=== PATIENT | male | born 1955 | race Caucasian/White ===

== ENCOUNTER 2019-09-07 03:27 | Emergency (ER) | payer MEDICARE, OTHER ==
[2019-09-07 03:36] VITALS: TEMP 97.7
[2019-09-07] MEDS ORDERED: LORazepam 2 MG/ML INJ IV STA (03:58)
[2019-09-07 04:12] LABS: Basophils # (A) 0.1 k/uL (0-0.2); Basophils % (A) 2 %; Eosinophils # (A) 0.4 k/uL (0-0.7); Eosinophils % (A) 6 %; HGB 13.1 gm/dL (13.0-17.5); Lymphocytes % (A) 27 %; MCH 29.8 pg (25.0-35.0); MCHC 31.9 g/dL (31.0-37.0); MCV 93.6 fL (80.0-100.0); Mean Platelet Volume 7.3; Monocytes # (A) 0.4 k/uL (0-1.0); Monocytes % (A) 5 %; Neutrophils # (A) 4.3 k/uL (1.3-7.7); Neutrophils % (A) 59 %; Platelet Count 267 k/uL (150-450); RBC 4.38 m/uL (4.30-5.90); RDW 14.3 % (11.5-15.5); WBC 7.2 k/uL (3.8-10.6)
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
--- NOTE | 2019-09-07 04:14 | XR ---
EXAMINATION TYPE: XR chest 1V portable DATE OF EXAM: 09/07/2019 COMPARISON: NONE HISTORY: Chest pain TECHNIQUE: FINDINGS: Heart and mediastinum are normal. Lungs are clear. Diaphragm is normal. There are chest alverto ds. IMPRESSION: No active cardiopulmonary disease. Normal heart.
[2019-09-07 04:23] LABS: African American GFR (CKD) >90 (>60 ml/min/1.73 sqM); Anion Gap 6 mmol/L; Blood Urea Nitrogen 13 mg/dL (9-20); Carbon Dioxide 26 mmol/L (22-30); Chloride 106 mmol/L (98-107); Glucose 103 mg/dL (74-99); Potassium 3.5 mmol/L (3.5-5.1); Sodium 138 mmol/L (137-145)
[2019-09-07 04:24] LABS: ALT 20 U/L (4-49); AST 29 U/L (17-59); Albumin 3.6 g/dL (3.5-5.0); Alkaline Phosphatase 126 U/L (38-126); Calcium 9.1 mg/dL (8.4-10.2); Magnesium 1.7 mg/dL (1.6-2.3); Non-African American GFR(CKD) 87 (>60 ml/min/1.73 sqM); Total Bilirubin 0.3 mg/dL (0.2-1.3)
[2019-09-07 04:26] LABS: INR 0.9 (<1.2); Partial Thromboplastin Time 23.5 sec (22.0-30.0); Prothrombin Time 9.7 sec (9.0-12.0)
[2019-09-07] MEDS ORDERED: METOPROLOL TARTRATE 25 MG TAB PO STA (04:51)
[2019-09-07] MEDS ORDERED: LISINOPRIL 10 MG TAB PO STA (04:51)
[2019-09-07] MEDS ORDERED: cloNIDine HCL 0.2 MG TAB PO STA (05:44)
[2019-09-07 06:59] VITALS: BP 143/107; PULSE 74; RESP 19
== END 2019-09-07 07:35 | disposition home or self-care (01) ==
LOC: EC 03:27
DX: I10 Essential (primary) hypertension (principal); R07.9 Chest pain, unspecified; R06.02 Shortness of breath; M06.9 Rheumatoid arthritis, unspecified; N40.0 Benign prostatic hyperplasia without lower urinary tract symptoms; G89.29 Other chronic pain; M54.9 Dorsalgia, unspecified; F17.200 Nicotine dependence, unspecified, uncomplicated; Z79.82 Long term (current) use of aspirin; Z79.02 Long term (current) use of antithrombotics/antiplatelets; Z79.899 Other long term (current) drug therapy; Z85.820 Personal history of malignant melanoma of skin; Z86.73 Personal history of transient ischemic attack (TIA), and cerebral infarction without residual deficits
CPT/HCPCS: 36415; 93005; 80053; 83735; 84484; 85025; 85610; 85730; 71045; 99285; 96374; J2060

== ENCOUNTER → 2021-11-04 | Outpatient (CLI) | payer MEDICARE, OTHER ==
[2021-11-04 20:53] LABS: ALT 33 U/L (10-49); AST 32 U/L (14-35); Chol/HDL Ratio 3.83 Ratio; LDL Cholesterol,Calculated 83.8 mg/dL (0.0-131.0)
== END | disposition home or self-care (01) ==
LOC: LABWHC1 12:14
PROVIDERS: ATTEND Nurse Practitioner Family
DX: E78.2 Mixed hyperlipidemia (principal)
CPT/HCPCS: 36415; 80061; 84450; 84460

== ENCOUNTER → 2022-06-05 | Outpatient (CLI) | payer MEDICARE, OTHER ==
--- NOTE | 2022-06-05 22:15 | CTL ---
EXAMINATION TYPE: CT Low Dose Lung DATE OF EXAM ORDERED: 06/05/2022 COMPARISON: None HISTORY: . Low Dose CT Lung Screening CT DLP: 99.[address] CTDI: 2.70 mGy IV CONTRAST USED: None. SCREENING VISIT: First visit COMPARISON: None. TECHNIQUE: Low dose computed tomography scan was performed through the chest at 1 millimeter thick se ctions and reconstructed images in the coronal plane at [address] DIAGNOSTIC QUALITY: Satisfactory FINDINGS: LUNG NODULES: Not presentLeft lung: no nodules identified.Right lung: no nodules identified. LUNGS: COPD: Severity: None Fibrosis: Severity:None Lymph nodes: None Other findings: None RIGHT PLEURAL SPACE: Effusion: None Calcification: None Thickening: None Pneumothorax: None LEFT PLEURAL SPACE: Effusion: None Calcification: None Thickening: None Pneumothorax: None HEART: Heart Size: Mildly enlarged Coronary calcification: Moderate Pericardial effusion: None OTHER FINDINGS: Upper abdomen: No significant abnormality Bony thorax: Degenerative changes Supraclavicular region: No significant abnormalityOther: No significant abnormalityI IMPRESSION: No pulmonary nodules seen. FOLLOW UP CT CHEST RECOMMENDATION: Follow-up screening in one year CT LUNG RAD: LUNG RAD CATEGORY 1 negative
== END | disposition home or self-care (01) ==
LOC: RADCTMAIN 18:32
PROVIDERS: ATTEND Family Medicine
DX: Z12.2 Encounter for screening for malignant neoplasm of respiratory organs (principal); Z87.891 Personal history of nicotine dependence
CPT/HCPCS: 71271

== ENCOUNTER 2022-06-25 08:53 | Day surgery (SDC) | payer MEDICARE, OTHER ==
[2022-06-23 15:57] VITALS: BMI 23.6
[~2022-06-25 08:53] MED LIST: LIDOCAINE 1% (10MG/ML) FOR IV START INTRADERMA PRN
[2022-06-25 09:23] VITALS: TEMP 96.8
[2022-06-25] MEDS: LACTATED RINGERS 1,000 ML IV SCH ×2 (09:29→09:32)
[2022-06-25] MEDS ORDERED: PROPOFOL 10 MG/ML 20 ML VIAL IV ONE (09:36)
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
--- NOTE | 2022-06-25 09:52 | P.OP ---
Date of Procedure: 06/25/22 Preoperative Diagnosis: Screen colonoscopy Postoperative Diagnosis: Sigmoid colon polyp Procedure(s) Performed: Colonoscopy Anesthesia: MAC Surgeon: Andrew Blackburn Pathology: other (Sigmoid colon polyp) Condition: stable Disposition: PACU Description of Procedure: The patient's placed on the endoscopy table in the lateral position. He received IV sedation. Digital rectal exam was performed. This revealed no ebonized. Flexible colonoscope was then placed patient anus and passed throughout. The ileocecal valve was visually is. The cecum, ascending and transverse colon appeared normal. Scope was brought back the descending colon appeared normal. In the sigmoid colon there was a peduncular polyp which was removed with the snare. Scope summer back the rectum and this appeared normal. Scope withdrawn for patient. The patient will follow-up in the office next week for evaluation of his right groin pain.
[2022-06-25 10:33] VITALS: BP 107/72; PULSE 64; RESP 14
== END 2022-06-25 10:39 | disposition home or self-care (01) ==
LOC: ORWHC2ENDO 08:53
PROVIDERS: ATTEND Surgery
DX: Z12.11 Encounter for screening for malignant neoplasm of colon (principal); K63.5 Polyp of colon; J45.909 Unspecified asthma, uncomplicated; E78.5 Hyperlipidemia, unspecified; I10 Essential (primary) hypertension; M19.90 Unspecified osteoarthritis, unspecified site; F32.A Depression, unspecified; F17.210 Nicotine dependence, cigarettes, uncomplicated; Z79.02 Long term (current) use of antithrombotics/antiplatelets; Z85.828 Personal history of other malignant neoplasm of skin; Z86.73 Personal history of transient ischemic attack (TIA), and cerebral infarction without residual deficits; Z87.442 Personal history of urinary calculi
CPT/HCPCS: 45385; J2704; 88305

== ENCOUNTER → 2022-07-07 | Outpatient (CLI) | payer MEDICARE, OTHER ==
[2022-07-07 23:29] LABS: Basophils # (A) 0.07 X 10*3/uL (0.00-0.10); Eosinophils # (A) 0.28 X 10*3/uL (0.04-0.35); Eosinophils % (A) 3.9 %; HCT 39.2 % (39.6-50.0); HGB 12.9 g/dL (13.0-17.0); Immature Grans, Automated 0.3 %; Lymphocytes # (A) 2.25 X 10*3/uL (0.90-5.00); Lymphocytes % (A) 31.6 %; MCH 31.2 pg (27.0-32.0); MCHC 32.9 g/dL (32.0-37.0); MCV 94.7 fL (80.0-97.0); Mean Platelet Volume 9.7 fL (9.5-12.2); Monocytes # (A) 0.57 X 10*3/uL (0.20-1.00); NRBC Per 100 WBC 0 /100 WBCS (0.0-0.0); Neutrophils # (A) 3.93 X 10*3/uL (1.80-7.70); Neutrophils % (A) 55.2 %; Platelet Count 294 X 10*3/uL (140-440); RBC 4.14 X 10*6/uL (4.40-5.60); RDW 14.5 % (11.5-14.5); WBC 7.12 X 10*3/uL (4.50-10.00)
== END | disposition home or self-care (01) ==
LOC: LABPAT 15:49
PROVIDERS: ATTEND Surgery
DX: Z01.812 Encounter for preprocedural laboratory examination (principal); K40.20 Bilateral inguinal hernia, without obstruction or gangrene, not specified as recurrent
CPT/HCPCS: 85025; 93005

== ENCOUNTER 2022-07-15 08:01 | Day surgery (SDC) | payer MEDICARE, OTHER ==
[~2022-07-15 08:01] MED LIST changes: +ACETAMINOPHEN TAB 500 MG TAB PO PRN; +DEXAMETHASONE SOD PHOSPHATE 4 MG/ML 1 ML VIAL IV ONE; +HEPARIN SODIUM,PORCINE/PF 5,000 UNIT/0.5 ML SYRINGE SQ PRN; +ONDANSETRON 4 MG/2 ML VIAL IVP ONE
[2022-07-15] MEDS: LACTATED RINGERS 1,000 ML IV SCH ×2 (08:35→12:17)
[2022-07-15] MEDS ORDERED: MIDAZOLAM 2 MG/2 ML VIAL IVP ONE (08:58)
--- NOTE | 2022-07-15 09:06 | P.ANPRN ---
Procedure Note - Anesthesia - Nerve Block Performed Bilateral Transversus Abdominis Single Time Out Performed: Yes Date of Procedure: 07/15/22 Procedure Start Time: 08:57 Procedure Stop Time: 09:03 Location of Patient: PreOp Indication: Acute Post-Operative Pain, Requested by Surgeon Sedation Type: Sedate with meaningful contact maintained Preparation: Sterile Prep, Sterile Dressing Position: Supine Needle Types: Pajunk Needle Gauge: 21 Ultrasound used to visualize needle placement: Yes Ultrasound used to observe medication spread: Yes Injectate: 0.5% Ropivacaine (see comment for volume) (0.25% 30 cc right and left side) Blood Aspirated: No Pain Paresthesia on Injection Noted: No Resistance on Injection: Normal Image Stored and Saved: Yes Events: Uneventful and Well Tolerated
[2022-07-15 09:10] LABS: Potassium 3.9 mmol/L (3.5-5.1)
[2022-07-15] MEDS ORDERED: KETAMINE 10 MG/ML 20 ML VIAL ONE (09:35)
[2022-07-15] MEDS ORDERED: ROCURONIUM 10 MG/ML (5 ML VIAL) IV ONE (09:35)
[2022-07-15] MEDS ORDERED: GLYCOPYRROLATE 0.2 MG/ML 2 ML VIAL ONE (09:35)
[2022-07-15] MEDS ORDERED: PROPOFOL 10 MG/ML 20 ML VIAL IV ONE (09:35)
[2022-07-15] MEDS ORDERED: LIDOCAINE 4% LTA KIT (4 ML) TOPICAL ONE (09:35)
[2022-07-15] MEDS ORDERED: ROPIVACAINE 5 MG/ML 30 ML VIAL ONE (09:35)
[2022-07-15] MEDS ORDERED: NEOSTIGMINE 1 MG/ML 10 ML VIAL ONE (09:35)
[2022-07-15] MEDS ORDERED: BUPIVACAIN-EPI 0.25%-1:200,000 30 ML VIAL SQ ONE ×2 (09:44→09:53)
[2022-07-15] MEDS ORDERED: LACTATED RINGERS 1,000 ML IV ONE ×2 (10:23→10:49)
[2022-07-15] MEDS ORDERED: ACETAMINOPHEN TAB 325 MG TAB PO PRN (10:49)
[2022-07-15] MEDS ORDERED: ONDANSETRON 4 MG/2 ML VIAL IVP PRN (10:49)
[2022-07-15] MEDS ORDERED: NALOXONE 0.4 MG/ML 1 ML VIAL IV PRN (10:49)
[2022-07-15] MEDS ORDERED: HYDROmorphone 0.5 MG/0.5 ML SYRINGE IVP PRN (10:49)
--- NOTE | 2022-07-15 10:49 | P.OP ---
Date of Procedure: 07/15/22 Preoperative Diagnosis: Bilateral inguinal hernia Postoperative Diagnosis: Bilateral inguinal hernia Bilateral cord lipoma Procedure(s) Performed: Laparoscopic robotic system repair of bilateral hernia Laparoscopic excision of bilateral cord lipoma Transversus abdominis plane block Anesthesia: JESSICA Surgeon: Andrew Blackburn Estimated Blood Loss (ml): 5 Pathology: other (Cord lipoma) Condition: stable Disposition: PACU Description of Procedure: The patient's placed on the operating table in the supine position. The patient received general anesthesia. The patient's abdomen was prepped and draped in usual sterile fashion. The skin was anesthetized 1% local Xylocaine at the incision sites. Using an 11 blade a skin incision was made at the umbilicus. The fascia was grasped with a Navya and then the peritoneal cavity was entered with the Veress needle. Position of the Veress needle was confirmed with a positive drop test. After adequate insufflation a 5 mm trocar was placed into the peritoneal cavity. The Laparoscope was placed the peritoneal cavity. And a robotic 8 mm trocar was placed in the right lateral position and then another 8 mm robotic trochars placed in the left lateral position. The original 5 mm trocar was exchanged for a 12 mm trocar. A four-quadrant transversus abdominis plane block was then performed using 1% local Xylocaine. The patient was placed in reverse Trendelenburg and then the patient was docked to the robot. Next the peritoneum over top of the right inguinal hernia was incised and then using blunt and sharp dissection and electrocautery the hernia sac was dissected free from the floor of the inguinal canal. The cord lipoma was dissected free and sent to pathology The hernia sac was completely reduced into the peritoneal cavity. And then using the Pro blast setter mesh the hernia was repaired. The peritoneum was then sutured with 20V lock suture. Next the peritoneum over top of the left inguinal hernia was incised and then using blunt and sharp dissection and electrocautery the hernia sac was dissected free from the floor of the inguinal canal. The cord lipoma was dissected free and sent to pathology The hernia sac was completely reduced into the peritoneal cavity. And then using the Pro blast setter mesh the hernia was repaired. The peritoneum was then sutured with 20V lock suture. The patient was then undocked the robot. The needle was withdrawn from the peritoneal cavity. The umbilical trocar site was closed with 0 Ethibond suture. The skin was closed interrupted 3-0 Monocryl suture. Dermabond dressing was applied. Patient was sent to recovery in stable condition.
[2022-07-15] MEDS ORDERED: ALBUTEROL NEBULIZED 2.5 MG/3 ML INHALATION ONE (10:57)
[2022-07-15] MEDS: HYDROmorphone 0.5 MG/0.5 ML SYRINGE IVP PRN ×3 (11:30→11:50)
[2022-07-15] MEDS: HYDROmorphone 1 MG/ML 1 ML SYRINGE IVP PRN ×2 (12:53→21:05)
[2022-07-15] MEDS ORDERED: CYCLOBENZAPRINE 10 MG TAB PO PRN (17:46)
[2022-07-15] MEDS: HYDROcodone/APAP 10-325MG 1 EACH TAB PO SCH ×2 (18:54→22:50)
[2022-07-15] MEDS ORDERED: ATORVASTATIN 80 MG TAB PO SCH (21:00)
[2022-07-15] MEDS ORDERED: traZODone HCL 50 MG TAB PO SCH (21:00)
[2022-07-15] MEDS: PANTOPRAZOLE 40 MG TABLET PO SCH (21:33)
[2022-07-16] MEDS: PANTOPRAZOLE 40 MG TABLET PO SCH (05:30)
[2022-07-16 07:46] VITALS: BP 129/74; PULSE 58; RESP 18; TEMP 98.5
[2022-07-16] MEDS: HYDROcodone/APAP 10-325MG 1 EACH TAB PO SCH (08:11)
[2022-07-16] MEDS ORDERED: ENOXAPARIN 40 MG/0.4 ML SYRINGE SQ SCH (09:00)
[2022-07-16] MEDS ORDERED: DULoxetine HCL 60 MG CAPSULE.DR PO SCH (09:00)
[2022-07-16] MEDS ORDERED: lisinopriL 5 MG TAB PO SCH (09:00)
[2022-07-16] MEDS ORDERED: METOPROLOL TARTRATE 25 MG TAB PO SCH (09:00)
[2022-07-16] MEDS ORDERED: ASCORBIC ACID 500 MG TAB PO SCH (09:00)
[2022-07-16] MEDS ORDERED: CLOPIDOGREL 75 MG TAB PO SCH (09:00)
== END 2022-07-16 10:08 | disposition home or self-care (01) ==
LOC: OR 08:01 → 6NMEDSUR 11:37 → OR 07-16 10:08
PROVIDERS: ATTEND Surgery
DX: K40.20 Bilateral inguinal hernia, without obstruction or gangrene, not specified as recurrent (principal); D17.6 Benign lipomatous neoplasm of spermatic cord; G89.18 Other acute postprocedural pain; I10 Essential (primary) hypertension; M19.90 Unspecified osteoarthritis, unspecified site; N42.9 Disorder of prostate, unspecified; M06.9 Rheumatoid arthritis, unspecified; Z86.73 Personal history of transient ischemic attack (TIA), and cerebral infarction without residual deficits; Z98.890 Other specified postprocedural states
CPT/HCPCS: 88304; 80048; 49650; 64488; 11403; C1781 ×2; J2250; J1100; J2710; J0690; J2405; J1650; J1170 ×2; J2704; J1644; 86850; 86900; 86901

== ENCOUNTER 2022-12-30 01:32 | Emergency (ER) | payer MEDICARE, OTHER ==
[2022-12-30 01:37] VITALS: TEMP 97.7
[2022-12-30 03:05] LABS: INR 0.9 (<1.2); Partial Thromboplastin Time 23.5 sec (22.0-30.0); Prothrombin Time 9.8 sec (9.0-12.0)
[2022-12-30 03:08] LABS: Basophils # (A) 0.1 k/uL (0-0.2); Basophils % (A) 1 %; Eosinophils # (A) 0.2 k/uL (0-0.7); Eosinophils % (A) 2 %; HCT 39.7 % (39.0-53.0); HGB 13.2 gm/dL (13.0-17.5); Lymphocytes # (A) 2.4 k/uL (1.0-4.8); Lymphocytes % (A) 24 %; MCH 31.8 pg (25.0-35.0); MCHC 33.3 g/dL (31.0-37.0); MCV 95.6 fL (80.0-100.0); Monocytes # (A) 0.5 k/uL (0-1.0); Monocytes % (A) 5 %; Neutrophils # (A) 6.9 k/uL (1.3-7.7); Neutrophils % (A) 68 %; Platelet Count 309 k/uL (150-450); RBC 4.15 m/uL (4.30-5.90); RDW 14.1 % (11.5-15.5); WBC 10.2 k/uL (3.8-10.6)
[2022-12-30 03:14] LABS: ALT 30 U/L (4-49); AST 42 U/L (17-59); African American GFR (CKD) 89 (>60 ml/min/1.73 sqM); Albumin 4.1 g/dL (3.5-5.0); Alkaline Phosphatase 147 U/L (38-126); Anion Gap 11 mmol/L; Blood Urea Nitrogen 22 mg/dL (9-20); Calcium 9.5 mg/dL (8.4-10.2); Carbon Dioxide 25 mmol/L (22-30); Chloride 104 mmol/L (98-107); Glucose 104 mg/dL (74-99); Magnesium 1.7 mg/dL (1.6-2.3); Non-African American GFR(CKD) 77 (>60 ml/min/1.73 sqM); Potassium 4.1 mmol/L (3.5-5.1); Sodium 140 mmol/L (137-145); Total Bilirubin 0.3 mg/dL (0.2-1.3); Total Protein 6.5 g/dL (6.3-8.2)
--- NOTE | 2022-12-30 03:50 | XR ---
EXAM: XR Chest, 2 Views CLINICAL HISTORY: ITS.REASON XR Reason: difficulty breathing TECHNIQUE: Frontal and lateral views of the chest. COMPARISON: 09/07/2019 FINDINGS: Lungs: Left base atelectasis. Pleural space: Unremarkable. No pneumothorax. No pleural effusions. Heart: Unremarkable. No cardiomegaly. Mediastinum: Unremarkable. Bones/joints: No acute osseous abnormalities. IMPRESSION: Left base atelectasis.
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
[2022-12-30 05:01] VITALS: BP 155/96; PULSE 80; RESP 18
== END 2022-12-30 05:01 | disposition home or self-care (01) ==
LOC: EC 01:32
DX: R06.02 Shortness of breath (principal); I10 Essential (primary) hypertension; M19.90 Unspecified osteoarthritis, unspecified site; F32.A Depression, unspecified; F17.200 Nicotine dependence, unspecified, uncomplicated; Z86.73 Personal history of transient ischemic attack (TIA), and cerebral infarction without residual deficits; Z79.1 Long term (current) use of non-steroidal anti-inflammatories (NSAID); Z79.899 Other long term (current) drug therapy; Z79.82 Long term (current) use of aspirin; Z20.822 Contact with and (suspected) exposure to COVID-19
CPT/HCPCS: 36415; 71046; 80053; 83605; 83735; 83880; 84484; 85025; 85610; 85730; 87635; 93005; 99285

== ENCOUNTER 2023-06-12 15:09 | Emergency (ER) | payer MEDICARE, OTHER ==
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
[2023-06-12] MEDS ORDERED: HYDROmorphone 1 MG/ML 1 ML SYRINGE IM STA (16:11)
[2023-06-12] MEDS ORDERED: KETOROLAC 15 MG/ML 1 ML VIAL IM STA (16:11)
[2023-06-12 17:43] VITALS: BP 136/86; PULSE 65; RESP 18; TEMP 97.9
== END 2023-06-12 17:38 | disposition home or self-care (01) ==
LOC: EC 15:09
DX: K08.89 Other specified disorders of teeth and supporting structures (principal); I10 Essential (primary) hypertension; F32.A Depression, unspecified; F17.200 Nicotine dependence, unspecified, uncomplicated; Z79.82 Long term (current) use of aspirin; Z79.899 Other long term (current) drug therapy
CPT/HCPCS: 99283; 96372 ×2; J1170; J1885

== ENCOUNTER 2023-06-16 05:49 | Day surgery (SDC) | payer MEDICARE, OTHER ==
[2023-06-15 13:46] VITALS: BMI 23.6
[~2023-06-16 05:49] MED LIST changes: -DEXAMETHASONE SOD PHOSPHATE 4 MG/ML 1 ML VIAL IV ONE; -LIDOCAINE 1% (10MG/ML) FOR IV START INTRADERMA PRN; -ONDANSETRON 4 MG/2 ML VIAL IVP ONE
[2023-06-16] MEDS ORDERED: ONDANSETRON 4 MG/2 ML VIAL ONE (06:14)
[2023-06-16] MEDS ORDERED: LACTATED RINGERS 1,000 ML IV SCH (06:17)
[2023-06-16] MEDS ORDERED: HYDROmorphone 0.5 MG/0.5 ML SYRINGE IVP PRN (06:17)
[2023-06-16] MEDS ORDERED: MIDAZOLAM 2 MG/2 ML VIAL IV PRN (06:17)
[2023-06-16] MEDS ORDERED: DEXAMETHASONE SOD PHOSPHATE 4 MG/ML 1 ML VIAL IV ONE (06:17)
[2023-06-16] MEDS ORDERED: LIDOCAINE 1% (10MG/ML) FOR IV START INTRADERMA PRN (06:17)
[2023-06-16] MEDS ORDERED: ONDANSETRON 4 MG/2 ML VIAL IVP ONE (06:17)
[2023-06-16] MEDS ORDERED: LACTATED RINGERS 1,000 ML IV ONE (06:25)
[2023-06-16 06:53] LABS: Basophils % (A) 0 %; Eosinophils # (A) 0.3 k/uL (0-0.7); Eosinophils % (A) 3 %; HCT 36.3 % (39.0-53.0); HGB 12.2 gm/dL (13.0-17.5); Lymphocytes # (A) 2.2 k/uL (1.0-4.8); Lymphocytes % (A) 24 %; MCH 31.8 pg (25.0-35.0); MCHC 33.4 g/dL (31.0-37.0); Mean Platelet Volume 7.6; Monocytes # (A) 0.3 k/uL (0-1.0); Monocytes % (A) 4 %; Neutrophils # (A) 6.2 k/uL (1.3-7.7); Neutrophils % (A) 68 %; Platelet Count 269 k/uL (150-450); RBC 3.82 m/uL (4.30-5.90); RDW 13.6 % (11.5-15.5); WBC 9.1 k/uL (3.8-10.6)
[2023-06-16] MEDS ORDERED: fentaNYL (PF) 50 MCG/ML 2 ML AMP ONE (07:25)
[2023-06-16] MEDS ORDERED: PROPOFOL 10 MG/ML 20 ML VIAL IV ONE (07:25)
[2023-06-16] MEDS ORDERED: SODIUM CHLORIDE 0.9% (PF) 10 ML VIAL ONE (07:25)
[2023-06-16] MEDS ORDERED: SUCCINYLCHOLINE CHLORIDE 200 MG/10 ML VIAL IV ONE (07:25)
[2023-06-16] MEDS ORDERED: LIDOCAINE 1% INJ 10MG/ML (20 ML MDV) ONE (07:25)
[2023-06-16] MEDS ORDERED: GLYCOPYRROLATE 0.2 MG/ML 2 ML VIAL ONE (07:25)
[2023-06-16] MEDS ORDERED: ROCURONIUM 10 MG/ML (5 ML VIAL) IV ONE (07:25)
[2023-06-16] MEDS ORDERED: NEOSTIGMINE 1 MG/ML 10 ML VIAL ONE (07:25)
[2023-06-16] MEDS ORDERED: ROPIVACAINE 5 MG/ML 30 ML VIAL ONE (07:25)
--- NOTE | 2023-06-16 07:46 | P.ANPRN ---
Procedure Note - Anesthesia - Nerve Block Performed Bilateral Transversus Abdominis Single Time Out Performed: Yes Date of Procedure: 06/16/23 Procedure Start Time: 07:00 Procedure Stop Time: 07:12 Location of Patient: PreOp Indication: Acute Post-Operative Pain, Requested by Surgeon Sedation Type: Sedate with meaningful contact maintained Preparation: Sterile Prep Position: Supine Catheter: None Needle Types: Pajunk Needle Gauge: 21 Ultrasound used to visualize needle placement: Yes Ultrasound used to observe medication spread: Yes Injectate: 0.5% Ropivacaine (see comment for volume) (Ropiv 10ml +NS 10 ml------ on each side) Blood Aspirated: No Pain Paresthesia on Injection Noted: No Resistance on Injection: Normal Image Stored and Saved: Yes Events: Uneventful and Well Tolerated
[2023-06-16] MEDS ORDERED: BUPIVACAINE (PF) 0.25% 30 ML VIAL SQ ONE (07:55)
--- NOTE | 2023-06-16 08:15 | P.OP ---
Date of Procedure: 06/16/23 Preoperative Diagnosis: Umbilical hernia Postoperative Diagnosis: Umbilical hernia Procedure(s) Performed: Open repair Umbilical hernia Anesthesia: JESSICA Surgeon: Andrew Blackburn Pathology: none sent Condition: stable Disposition: PACU Description of Procedure: The patient's placed on the table in the supine position. He received general trach tube anesthesia. His abdomen was prepped and draped usual sterile fashion. The patient a small local hernia. An infraumbilical skin incision was made then using blunt and sharp dissection with cautery the umbilical hernia was dissected free from the subcutaneous tissues the fascial defect measured approximately 1.5 cm diameter. The fascia was then reapproximated using. 0 Ethibond suture. Hemostasis was achieved with electrocautery. Skin closed interrupted 3-0 Monocryl suture. Dermabond dressings was applied. Patient top she will he was sent to recovery room in stable condition.
[2023-06-16 08:54] VITALS: RESP 18; TEMP 98.6
[2023-06-16 09:52] VITALS: BP 142/84; PULSE 60
== END 2023-06-16 10:25 | disposition home or self-care (01) ==
LOC: OR 05:49
PROVIDERS: ATTEND Surgery
DX: K42.9 Umbilical hernia without obstruction or gangrene (principal); G89.18 Other acute postprocedural pain; I10 Essential (primary) hypertension; I63.9 Cerebral infarction, unspecified; M19.90 Unspecified osteoarthritis, unspecified site; M06.9 Rheumatoid arthritis, unspecified; N42.9 Disorder of prostate, unspecified; Z85.9 Personal history of malignant neoplasm, unspecified; Z95.5 Presence of coronary angioplasty implant and graft; F17.210 Nicotine dependence, cigarettes, uncomplicated; Z79.899 Other long term (current) drug therapy; Z79.02 Long term (current) use of antithrombotics/antiplatelets; Z79.891 Long term (current) use of opiate analgesic; Z79.4 Long term (current) use of insulin
CPT/HCPCS: 49591; 64488; 85025; J2250; J0330; J1100; J2710; J0690; J2405; J2001; J3010; J2795; J2704; J1644; J0665

== ENCOUNTER 2023-08-30 14:35 | Observation (INO) | payer MEDICARE, OTHER ==
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
[2023-08-30 15:21] LABS: Basophils # (A) 0.1 k/uL (0-0.2); Basophils % (A) 1 %; Eosinophils # (A) 0.2 k/uL (0-0.7); Eosinophils % (A) 2 %; HGB 13.9 gm/dL (13.0-17.5); Lymphocytes # (A) 1.5 k/uL (1.0-4.8); Lymphocytes % (A) 14 %; MCH 31.1 pg (25.0-35.0); MCHC 33.1 g/dL (31.0-37.0); MCV 94.1 fL (80.0-100.0); Monocytes # (A) 0.5 k/uL (0-1.0); Monocytes % (A) 5 %; Neutrophils # (A) 8.1 k/uL (1.3-7.7); Neutrophils % (A) 77 %; Platelet Count 256 k/uL (150-450); RBC 4.46 m/uL (4.30-5.90); WBC 10.5 k/uL (3.8-10.6)
[2023-08-30 15:31] LABS: INR 0.9 (<1.2); Partial Thromboplastin Time 25.4 sec (22.0-30.0)
[2023-08-30 15:32] LABS: ALT 27 U/L (4-49); AST 40 U/L (17-59); African American GFR (CKD) >90 (>60 ml/min/1.73 sqM); Albumin 4.6 g/dL (3.5-5.0); Alkaline Phosphatase 133 U/L (38-126); Anion Gap 11 mmol/L; Blood Urea Nitrogen 12 mg/dL (9-20); Calcium 9.1 mg/dL (8.4-10.2); Carbon Dioxide 24 mmol/L (22-30); Chloride 103 mmol/L (98-107); Glucose 107 mg/dL (74-99); Magnesium 1.5 mg/dL (1.6-2.3); Non-African American GFR(CKD) 90 (>60 ml/min/1.73 sqM); Potassium 3.4 mmol/L (3.5-5.1); Sodium 138 mmol/L (137-145); Total Bilirubin 0.5 mg/dL (0.2-1.3); Total Protein 7.3 g/dL (6.3-8.2)
--- NOTE | 2023-08-30 16:34 | XR ---
EXAMINATION TYPE: XR chest 2V DATE OF EXAM: 08/30/2023 4:30 PM CLINICAL INDICATION:Male, 68 years old with history of Chest Pain; COMPARISON: Chest radiographs from 12/30/2022. TECHNIQUE: XR chest 2V Frontal and lateral views of the chest. FINDINGS: Lungs/Pleura: There is no evidence of pleural effusion, focal consolidation, or pneumothorax. Pulmonary vascularity: Unremarkable. Heart/mediastinum: Cardiomediastinal silhouette is unremarkable. Musculoskeletal: No acute osseous pathology. Other findings: None IMPRESSION: No acute cardiopulmonary disease/process.
--- NOTE | 2023-08-30 16:40 | XR ---
EXAMINATION TYPE: XR shoulder complete BILAT DATE OF EXAM: 08/30/2023 4:34 PM CLINICAL INDICATION:Male, 68 years old with history of Pain; [facility] COMPARISON: None TECHNIQUE: XR shoulder complete BILAT; examined in AP, internally rotated and scapular Y projections. FINDINGS: No evidence of acute osseous pathology, joint dislocation, or soft tissue swelling. The remaining po rtions of the visualized chest are unremarkable. Mild degeneration changes of the left acromion, dis brandie clavicle with osteophyte formation. There is osteophyte formation of the glenoid and humeral head . There is joint space narrowing of glenohumeral joint IMPRESSION: 1. No acute osseous pathology. 2. Moderate bilateral shoulder osteoarthrosis.
[2023-08-30] MEDS ORDERED: NITROGLYCERIN SL TABS 0.4 MG TAB SUBLINGUAL PRN (18:10)
[2023-08-30] MEDS: NITROGLYCERIN OINT 1 INCH/GM PACKET TOPICAL SCH (23:04)
[2023-08-31] MEDS: ACETAMINOPHEN TAB 325 MG TAB PO PRN (03:40)
[2023-08-31 08:05] VITALS: TEMP 97.9
[2023-08-31] MEDS ORDERED: DOBUTamine DRIP for NUC MED 500 MG in DEXTROSE/WATER 1 250ML.BAG IV PRN (08:20)
[2023-08-31] MEDS ORDERED: ASPIRIN 325 MG TAB PO SCH (09:00)
[2023-08-31] MEDS ORDERED: DOBUTamine DRIP for NUC MED 500 MG/250 ML BAG IV ONE (09:00)
[2023-08-31] MEDS: CYCLOBENZAPRINE 10 MG TAB PO SCH (09:11)
[2023-08-31] MEDS: ASPIRIN 81 MG PO SCH (09:11)
[2023-08-31] MEDS: GABAPENTIN 300 MG CAP PO SCH (09:12)
[2023-08-31] MEDS: CLOPIDOGREL 75 MG TAB PO SCH (09:12)
[2023-08-31] MEDS: lisinopriL 5 MG TAB PO SCH (09:12)
[2023-08-31] MEDS: HYDROcodone/APAP 10-325MG 1 EACH TAB PO SCH (09:12)
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
[2023-08-31 11:13] LABS: Chol/HDL Ratio 3.49 Ratio; LDL Cholesterol,Calculated 68.7 mg/dL (0.0-131.0)
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
[2023-08-31] MEDS ORDERED: ALBUTEROL NEBULIZED 2.5 MG/3 ML INHALATION PRN (12:04)
--- NOTE | 2023-08-31 12:17 | CA ---
Transthoracic Echo Report Name: Matt Nichols Age: 68 Gender: M : 1955 Exam Date: 08/31/2023 09:13 Exam Location: [facility] Ht (in): 69 Wt (lb): 160 Ordering Physician: Celeste Campbell Attending/Referring Phys: [id number], Shannan Solvent Process Extractor Operator Blanca Clement RDCS Procedure CPT: Indications: LVF Cardiac Hx: Technical Quality: Technically difficult study Contrast 1: Definity Total Dose (mL): 2 Contrast 2: Total Dose (mL): MEASUREMENTS (Male / Female) Normal Values 2D ECHO LV Diastolic Diameter PLAX 3.7 cm 4.2 - 5.9 / 3.9 - 5.3 cm LV Systolic Diameter PLAX 2.7 cm IVS Diastolic Thickness 1.3 cm 0.6 - 1.0 / 0.6 - 0.9 cm LVPW Diastolic Thickness 1.0 cm 0.6 - 1.0 / 0.6 - 0.9 cm LV Relative Wall Thickness 0.6 RV Internal Dim ED PLAX 3.3 cm LA Volume 23.9 cm??? 18 - 58 / 22 - 52 cm??? LA Volume Index 12.7 cm???/m??? 16 - 28 cm???/m??? M-MODE IVS Diastolic Thickness MM 3.2 cm 0.6 - 1.0 / 0.6 - 0.9 cm Aortic Root Diameter MM 3.3 cm LA Systolic Diameter MM 3.5 cm LA Ao Ratio MM 1.0 AV Cusp Separation MM 1.7 cm DOPPLER AV Peak Velocity 117.8 cm/s AV Peak Gradient 5.5 mmHg AV Mean Velocity 73.5 cm/s AV Mean Gradient 2.7 mmHg AV Velocity Time Integral 21.5 cm LVOT Peak Velocity 93.2 cm/s LVOT Peak Gradient 3.5 mmHg LVOT Velocity Time Integral 18.1 cm MV Area PHT 2.1 cm??? Mitral E Point Velocity 45.9 cm/s Mitral A Point Velocity 76.5 cm/s Mitral E to A Ratio 0.6 MV Deceleration Time 367.2 ms TR Peak Velocity 156.4 cm/s TR Peak Gradient 9.8 mmHg Right Ventricular Systolic Press 14.8 mmHg FINDINGS Left Ventricle Mildly increased left ventricular wall thickness. Left ventricular cavity size normal. No obvious regional wall motion abnormalities. Left ventricular ejection fraction is estimated at 55-60 %. Right Ventricle Normal right ventricular size and function. Right ventricular systolic pressure within normal limits. Right Atrium Right atrium not well visualized. Left Atrium Normal left atrial size. Mitral Valve Structurally normal mitral valve. Trace mitral regurgitation. Aortic Valve No aortic valve stenosis or regurgitation. Tricuspid Valve Trace to mild tricuspid regurgitation.structurally normal tricuspid valve. Pulmonic Valve Pulmonic valve not well visualized. Pericardium No pericardial effusion. Aorta Normal size aortic root and proximal ascending aorta. CONCLUSIONS Technically difficult study. Definity ECHO contrast used for improved visualization of the endocardial borders (inadequate visualization of two or more contiguous segments). Normal left ventricle size and systolic function Limited Doppler study with trace mitral and trace to mild tricuspid regurgitation Previewed by: Dr. Radha Arvizu MD (Electronically Signed) Final Date: 31 August 2023 12:16
[2023-08-31] MEDS: POTASSIUM CHLORIDE ER 20 MEQ TAB.ER PO STA (14:24)
[2023-08-31] MEDS: METOPROLOL TARTRATE 25 MG TAB PO SCH (14:25)
[2023-08-31] MEDS: MAGNESIUM OXIDE 400 MG TAB PO STA (14:25)
[2023-08-31 14:33] VITALS: BP 137/85; PULSE 73; RESP 21
[2023-08-31 15:40] LABS: African American GFR (CKD) >90 (>60 ml/min/1.73 sqM); Anion Gap 8 mmol/L; Blood Urea Nitrogen 14 mg/dL (9-20); Calcium 9.2 mg/dL (8.4-10.2); Carbon Dioxide 29 mmol/L (22-30); Chloride 104 mmol/L (98-107); Glucose 106 mg/dL (74-99); Non-African American GFR(CKD) >90 (>60 ml/min/1.73 sqM); Potassium 4.1 mmol/L (3.5-5.1); Sodium 141 mmol/L (137-145)
--- NOTE | 2023-08-31 17:41 | CA ---
Dobutamine Stress Echocardiogram Report Matt Nichols Age: 68 Gender: M : 1955 Exam Date: 08/31/2023 12:37 Exam Location: [facility] Ordering Physician: Celeste Campbell Referring Physician: [id number] Souza Credit Reporter: Gerri Bocanegra RDCS Technologist: Ht (in): 69 Wt (lb): 160 Procedure CPT: Indication: Chest Pain ICD-9 Codes: Rhythm: Patient History: CP, NUMBNESS FACE/NECK, HTN, CVA, CHOL, FAMILY HX, TOB Cardiac Medications: SEE CHART Medications in past 24 hours: Contrast: N/A Total Dose (mL): Stress Results Protocol: Dobutamine Peak Dose (???g/kg/min): 40 Duration (min:sec): Atropine:(mg) 0.5 Target HR: 131 Double Product: [id number] Resting HR: 69 Resting BP: 127 / 69 Peak HR: 142 Peak BP: 96 / 58 Max Predicted HR: 154 92 % Max Predicted HR Stress Summary: BP Response: Abnormal fall in BP during stress Reason for Termination: TARGET HR ACHIEVED Cardiac Symptoms: ASYMPTOMATIC ECG Analysis Resting EKG: Normal sinus rhythm, normal ECG Stress EKG: Half-Millimeter upsloping ST segment depression Arrhythmia: None Echo Analysis Base Echo Analysis: Normal resting echocardiogram. Low Echo Anaylsis: Normal wall thickening and motion Peak Echo Analysis: Normal wall motion augmentation with no hypokinesis or dyskinesis Recovery Echo: Normal systolic function MEASUREMENTS (Male/Female) Normal Values CONCLUSIONS 1. Borderline positive electrocardiographic response to dobutamine infusion 2. Normal stress echocardiogram with no evidence of stress induced ischemia Dr. Radha Arvizu MD (Electronically Signed) Final Date: 31 August 2023 17:40
[2023-08-31] MEDS ORDERED: DULoxetine HCL 60 MG CAPSULE.DR PO SCH (21:00)
[2023-08-31] MEDS ORDERED: traZODone HCL 50 MG TAB PO SCH (21:00)
[2023-08-31] MEDS ORDERED: ATORVASTATIN 80 MG TAB PO SCH (21:00)
[2023-09-01] MEDS ORDERED: IPRATROPIUM 0.5 MG/2.5 ML NEBU INHALATION SCH (08:00)
[2023-09-01] MEDS ORDERED: SYMBICORT 160-4.5 MCG INHALER INHALATION SCH (08:00)
== END 2023-08-31 18:35 | disposition home or self-care (01) ==
LOC: EC 14:35 → 6NMEDSUR 18:10
PROVIDERS: ADMIT Family Medicine; ATTEND Family Medicine
DX: R07.89 Other chest pain (principal); I65.22 Occlusion and stenosis of left carotid artery; E78.5 Hyperlipidemia, unspecified; E83.42 Hypomagnesemia; M19.012 Primary osteoarthritis, left shoulder; M19.011 Primary osteoarthritis, right shoulder; E87.6 Hypokalemia; I10 Essential (primary) hypertension; F17.210 Nicotine dependence, cigarettes, uncomplicated; Z86.73 Personal history of transient ischemic attack (TIA), and cerebral infarction without residual deficits; Z79.02 Long term (current) use of antithrombotics/antiplatelets; Z79.899 Other long term (current) drug therapy; Z79.82 Long term (current) use of aspirin; Z85.828 Personal history of other malignant neoplasm of skin; Z86.79 Personal history of other diseases of the circulatory system
CPT/HCPCS: 99285; 36415; 93005; 93351; 80061; 80053; 80048; 83735; 84484; 85025; 85610; 85730; 73030; 71046; G0378 ×2; C8929; J1250; Q9957; 93306